=== PATIENT | female | born 1945 | race Caucasian/White ===

== ENCOUNTER 2024-01-31 23:38 | Inpatient (IN) | payer MEDICARE, OTHER, SELFPAY ==
[2024-01-31 20:31] VITALS: BP 109/64
[2024-01-31 20:55] VITALS: BP 130/63
[2024-01-31 21:00] VITALS: BP 115/64
--- NOTE | 2024-01-31 21:16 | ED.GENMED ---
History of Present Illness
General
Chief Complaint: Weakness
Source: patient and spouse
Time Seen by Provider: 01/31/24 20:57
History of Present Illness
History of Present Illness:
78yoF with a history of coronary artery disease s/p CABG, hypertension, and hyperlipidemia presenting with her for evaluation after a fall. Patient fell this afternoon and got her right arm stuck in between two railing. Her right arm was
stuck above her head for about 2.5 hours today. Patient has ecchymosis to her right arm and is having difficulty extending right wrist. states that she has been having frequent falls recently and has fallen 3 times within the last 2 weeks.
This is an acute change for her. Patient is otherwise asymptomatic and denies any fevers, vomiting, diarrhea, dysuria, chest pain, shortness of breath. She is currently taking aspirin.
Phy Exam
General Physical Exam
General Presentation: well appearing and no apparent distress
General age: appears stated age
General Skin: warm and dry
General Habitus: normal
General Mental: alert
Cardiovascular Exam
Cardiovascular Exam: regular rate/rhythm
Pulmonary Exam
Pulmonary Exam: lungs clear, no respiratory distress, no crackles and no wheezing
[place] Coma Scale
Eye Opening: Spontaneous
Verbal Response: Oriented
Motor Response: Obeys Commands
GCS Total Score: 15
Musculoskeletal Exam
Musculoskeletal Exam: other (R wrist drop noted on exam. No pain with passive ROM of wrist. 2+ radial pulse and sensation intact. )
Course
Orders/Labs/Results
Orders:
Orders
01/31/24 21:11
CR Humerus - Right Min 2 View* Urgent
Comment:
Reason For Exam: Injury
CR Wrist - Right Min 3 Views Urgent
Comment:
Reason For Exam: Injury
Forearm, Right 2 View [CR Forearm - Right 2 View] Urgent
Comment:
Reason For Exam: Injury
01/31/24 21:12
Electrocardiogram (*1) Urgent
Reason for Study: Fatigue / Weakness
EKG- Treatment ONCE
01/31/24 21:18
CR Knee - Left 4 Or More View* Urgent
Comment:
Reason For Exam: Injury
01/31/24 21:22
Complete Blood Count/With Diff Urgent
Comprehensive Metabolic Panel Urgent
Total CK [Creatine Phosphokinase] Urgent
Troponin I Urgent
01/31/24 22:03
0.9% Sodium Chloride 500 ml [Nss] 500 ml IV BOLUS
01/31/24 23:38
Admit/Transfer Patient As Directed
Co-Sign Provider:
Level of Care: Inpatient admission
Assign to:: Telemetry
Physician / Group: Tamica
Diagnosis: Fall
Reason for Telemetry: Other
Other Reason for Telemetry: Elevated trop
Date to Stop Telemetry: 02/02/24
Time to Stop Telemetry: 11:00
Reason for Hospitalization: fall, elevated trop, rhabdo
Expected length of stay greater than two midnights?: Yes
ELOS- Estimated Length of Stay in days: 3
I certify the patient meets the requirements for IP care: Yes
PRN Pain Medication Management As Directed
May give lesser potent ordered pain med per pt: Yes
preference::
Protocol:: Medication orders for pain may be administered in a
manner that supports deferring to patient preference
when the pt is:
- Requesting an ordered lesser potent pain medication.
Least to most potent pain medications are defined
as: acetaminophen < NSAID < tramadol < opioids
(morphine, oxycodone, hydromorphone).
- Requesting a lesser dose of the same medication IF
ORDERED.
- Requesting a less intrusive route of administration
if both routes are prescribed by the provider (PO <
IV).
01/31/24 23:39
Code Status As Directed
Resuscitation Status: Full Code
02/01/24 06:00
CPK [Creatine Phosphokinase] IN AM
02/02/24 11:00
DC Protocol for Telemetry ONCE
Abnormal Lab Results
01/31/24
21:22
RBC 3.83 L 10^6/uL
(4.20-5.40)
Hct 34.6 L %
(37.0-47.0)
MCH 31.3 H pg
(27.0-31.0)
Absolute Neuts (auto) 8.2 H 10^3/uL
(1.4-6.5)
Absolute Lymphs (auto) 0.5 L 10^3/uL
(1.2-3.4)
Absolute Monos (auto) 1.1 H 10^3/uL
(0.1-0.6)
Neutrophils % 82.5 H %
(42.2-75.2)
Lymphocytes % 5.4 L %
(20.5-51.1)
Monocytes % 11.4 H %
(1.7-9.3)
BUN 24 H mg/dl
(7-17)
Glucose 150 H mg/dl
(70-99)
AST 59 H U/L
(14-36)
Creatine Kinase 1472 H U/L
(30-135)
Troponin I 0.057 H* ng/ml
Total Protein 6.2 L g/dl
(6.3-8.2)
01/31/24 21:22
01/31/24 21:22
Vital Signs
Initial and Last Documented VS:
Initial Vital Signs
Temp Pulse Resp BP Pulse Ox
97.9 F 77 16 109/64 97
01/31/24 20:31 01/31/24 20:31 01/31/24 20:31 01/31/24 20:31 01/31/24 20:31
Last Documented Vital Signs
Temp Pulse Resp BP Pulse Ox
97.9 F 77 13 139/79 97
01/31/24 20:31 01/31/24 23:00 01/31/24 23:00 01/31/24 23:00 01/31/24 23:00
MDM/Problems Addressed
Differential Diagnosis Includes:
78yoF here after a fall this evening. Frequent falls over the past 2 weeks. Arrives with a R wrist drop on exam. Patient is afebrile and hemodynamically stable. She is well-appearing in no acute distress. Patient is unable to extend her right
wrist. Passive range of motion is normal without pain. Suspect radial nerve palsy. Differential diagnosis includes but is not limited to: Failure to thrive, ambulatory dysfunction, dehydration, rhabdomyolysis
Initial ED plan: Check cardiac labs, CK, EKG, and right upper extremity x-rays.
*EKG
Interpreted by ED Provider?: Yes
EKG Intrepretation Date: 02/01/24
Heart Rate: 73
Rate: normal
Rhythm: sinus
[place]: normal axis
Interval: normal interval
QRS Pattern: normal QRS
Ischemia: no ischemia
*Critical Care Note
Total Time (30-74mins, 75-104mins- exclusive of procedures): Not Applicable
Update Note
Update Note:
Labs reveal a CK of 1200. Troponin 0.057. No acute ST changes on EKG. Renal function is stable. X-rays are negative for fracture per my interpretation. Patient given IV fluid bolus and she was admitted for further management.
ED Attending Note
-
Portions of this chart may have been created with voice recognition software.� Occasional wrong word or��sound alike� substitutions may have occurred due to the inherent limitations of voice recognition software.
Discharge Plan
Departure
Patient Disposition: Admit
Date of Disposition: 01/31/24
Time of Disposition: 23:16
Presentation/result/management discussed w/ accepting MD/DO: Hospitalist
Discharge Problem:
Frequent falls, Elevated troponin, Rhabdomyolysis
Prescriptions:
No Action
multivitamin Tablet
1 tab PO DAILY
metoprolol succinate 50 mg Tablet Extended Release 24 Hr
50 mg PO DAILY
amlodipine 2.5 mg Tablet
2.5 mg PO DAILY
ascorbic acid (vitamin C) [Vitamin C] 500 mg Tablet
500 mg PO DAILY
aspirin 81 mg Tablet
81 mg PO DAILY
rosuvastatin 5 mg Tablet
5 mg PO DAILY
cholecalciferol (vitamin D3) [Vitamin D3] 50 mcg (2,000 unit) Tablet
50 mcg PO DAILY
Referrals:
NONE,* [Family Provider] -
Interventions
Interventions:
*Risk Screen - Suicide Last Done: 01/31/24 20:31
*General Assessment Last Done: 01/31/24 20:31
*Neglect/Abuse Screening Last Done: 01/31/24 20:31
*ED COVID-19 Vaccine History Last Done: 01/31/24 20:31
ED- Cardiac Assessment Last Done: 01/31/24 21:40
ED- Neurological Assessment Last Done: 01/31/24 21:40
ED- Pulmonary Assessment Last Done: 01/31/24 21:40
Discharge Date and Time
Print Language: MOHAWK
[2024-01-31 21:43] LABS: % Basophils 0.4 % (0-2); % Immature Granulocytes 0.3 % (0-0.5); % Lymphocytes 5.4 % (20.5-51.1); % Monocytes 11.4 % (1.7-9.3); % Neutrophils 82.5 % (42.2-75.2); Absolute Lymphocytes 0.5 10^3/uL (1.2-3.4); Absolute Monocytes 1.1 10^3/uL (0.1-0.6); Absolute Neutrophils 8.2 10^3/uL (1.4-6.5); Hematocrit 34.6 % (37.0-47.0); Mean Corp Hgb Conc. 34.7 g/dL (33.0-37.0); Mean Corpuscular Hgb 31.3 pg (27.0-31.0); Mean Corpuscular Volume 90.3 fL (81.0-99.0); Mean Platelet Volume 10.4 fL (7.4-10.4); Nucleated Red Blood Cells % 0 %; Platelet Count 183 10^3/uL (130-400); Red Blood Cell Count 3.83 10^6/uL (4.20-5.40); Red Cell Dist. Width 13.2 % (11.5-14.5)
[2024-01-31 22:00] VITALS: BP 99/62
[2024-01-31 22:00] LABS: ALT (SGPT) 21 U/L (0-35); AST (SGOT) 59 U/L (14-36); Albumin 3.9 g/dl (3.5-5.0); Alkaline Phosphatase 64 U/L (38-126); Blood Urea Nitrogen 24 mg/dl (7-17); Calcium 9.3 mg/dl (8.4-10.2); Carbon Dioxide 26 mmol/L (22-30); Chloride 103 mmol/L (98-107); Creatine Phosphokinase 1472 U/L (30-135); Glucose 150 mg/dl (70-99); Potassium 4.4 mmol/L (3.5-5.1); Sodium 140 mmol/L (135-145); Total Bilirubin 1.3 mg/dl (0.2-1.3); Total Protein 6.2 g/dl (6.3-8.2); eGFR > 60.00
[2024-01-31 22:10] LABS: Troponin I 0.057 ng/ml
[2024-01-31] MEDS: NSS 500 IV (22:52)
[2024-01-31 23:00] VITALS: BP 139/79
--- NOTE | 2024-01-31 23:44 | HPS.HSE ---
Family Physician
-
Family Physician: * NONE
Chief Complaint
-
Mechanical fall
History of Present Illness
A pleasant 78-year-old female with history of coronary artery disease status post CABG then year and a half ago in [facility], hypertension, presented to the hospital with a after goes home and found the she
was laying on the [place] and right arm hanging between the arm rail above her shoulder according to the patient she stated like this for 2 and half hour, and this is her third fall in a couple of week and sounds like all mechanical denying any
symptoms prior to the event like dizziness or syncope or palpitation or shortness of breath or fever or chill, she has chronic right knee pain and arthritis and according to the they think this is attributed to her falls, no urinary or GI
symptom no chest pain or shortness of breath or cough or congestion. Workup in the ER showed mild elevation of the CPK around 1500 troponins 0.057 and there is evidence of the right wrist drop.
She is awake, alert and oriented x 3 and all appropriate conversation, at the bedside help out to provide more information
Medical History
Past Medical History
Past Medical History: Reports Other
Additional Past Medical History:
Past medical history and records reviewed:
Coronary disease status post CABG
Hypertension
Dyslipidemia
Recurrent falls
Social history: Lives at home with , no smoking and rarely drinks some wine.
Family history: Reviewed and noncontributory
Past Surgical History: Reports Other
Social History
Unable to obtain full social history at this time due to: Other
Family History
Family History: Other
Allergies / Home Medications
Allergies reflects when Allergies were last updated in [facility].
Home Medications with original date entered in [facility]
Allergy/Medication List:
Allergies
Allergy/AdvReac Type Severity Reaction Status Date / Time
No Known Allergies Allergy Verified 01/31/24 20:47
Home Medications
amlodipine 2.5 mg tablet 2.5 mg PO DAILY 01/31/24
ascorbic acid (vitamin C) 500 mg tablet (Vitamin C) 500 mg PO DAILY 01/31/24
aspirin 81 mg tablet 81 mg PO DAILY 01/31/24
cholecalciferol (vitamin D3) 50 mcg (2,000 unit) tablet (Vitamin D3) 50 mcg PO DAILY 01/31/24
metoprolol succinate 50 mg tablet,extended release 24 hr 50 mg PO DAILY 01/31/24
multivitamin 1 tab PO DAILY 01/31/24
rosuvastatin 5 mg tablet 5 mg PO DAILY 01/31/24
Review of Systems
-
A 12 point ROS was completed and negative except as noted: Yes
Physical Exam
Vital Signs
Vital Signs
Temp Pulse Resp BP Pulse Ox
97.9 F 77 13 139/79 97
01/31/24 20:31 01/31/24 23:00 01/31/24 23:00 01/31/24 23:00 01/31/24 23:00
Physical exam:
General: Awake, alert and oriented x3, not in distress and holds appropriate conversation.
HEENT: No active discharge, ecchymosis or bruising, moist lips, tongue and mucous membrane.
Eyes: No discharge or red conjunctiva, no nystagmus, pupils are reactive and equal
Neck:Supple, no JVD no bruit no goiter.
Respiratory: Normal AP contour and diameter, normal chest wall movement, normal respiratory effort, no respiratory distress,
Lungs: Good air entry bilaterally, no wheezing or rhonchi, no rales or crackles
Heart: S1, S2 regular, normal rate, no added sound.
Gastrointestinal: Positive bowel sounds, soft, nontender, no guarding or rigidity or organomegaly
Musculoskeletal: Right wrist drop, scattered ecchymosis and bruising of the right extremity with no ulceration, no chest wall abnormality or tenderness. All joints and extremities have good range of motion, no muscle tenderness or any joint
swelling or tenderness.
Extremities: No pitting edema, good peripheral pulses, good range of motion
Skin: Warm and dry, no ulceration, normal color.
Neurological: Awake, alert and oriented x3, right wrist drop appreciated cranial nerve II-XII grossly intact, speech clear and comprehensive, good muscle tone, normal sensory and motor function, other than right wrist drop
Psychiatric: Normal mood, normal thought and judgment, normal affect,
Physical Exam
General: Other
Laboratory Results
-
01/31/24 21:22
01/31/24 21:22
Laboratory Results
Total Bilirubin 1.3 mg/dl (0.2-1.3) 01/31/24 21:22
AST 59 U/L (14-36) H 01/31/24 21:22
ALT 21 U/L (0-35) 01/31/24 21:22
Alkaline Phosphatase 64 U/L (38-126) 01/31/24 21:22
Troponin I 0.057 ng/ml H* 01/31/24 21:22
Multiple x-ray of the right extremity did not, they are pending official report, per my review there was no fracture or dislocation of the right knee, right elbow, right wrist, right humerus and right forearm, refer to radiologist report once
available.
Data Reviewed
-
Diagnostic Radiology: Image Personally Visualized and interpreted, Discussed with Patient and Discussed with Family
Lab Data: Labs Reviewed by me, Discussed with Patient and Discussed with Family
Impression/Plan
-
IMPRESSION:
78-year-old female with history of coronary artery disease, presented to the hospital after had a mechanical fall at home and found by the laying on the step and right arm hanging between the rail guarding of the step above her head and
patient admits stayed like that but when asked our she was not able to get up.
Right wrist drop: Likely secondary to obstruction of the right shoulder and leading to right radial nerve palsy
Placed the right wrist splint-brace which is removable
Patient advised about moving his finger
The injury and mechanism of injury explained to the patient and the and the purpose of keeping the right wrist straight to avoid joint contracture.
PT OT
Recurrent fall: According to the secondary to her right knee chronic pain and arthritis.
Fall precaution
PT OT and assess functional status.
Traumatic rhabdomyolysis, CPK around 1500
IV fluid
Recheck
Elevated troponin: Likely secondary to rhabdomyolysis and a fall, doubt of cardiac cause
Follow the trend
teletypesetter monitor
Continue aspirin, statin, beta-kashif
Coronary artery disease status post CABG, year and a half ago, stable
With mild elevated troponin likely secondary to rhabdomyolysis.
Continue aspirin, metoprolol and statin
Follow the troponin trend
Hypertension. Continue metoprolol succinate and monitor vital sign.
All discussed with the patient and the in detail and expressed understanding
CODE STATUS full code
DVT prophylaxis
[2024-02-01] VITALS (10 sets, daily range): BP systolic 102–147; BP diastolic 61–87; PULSE 68; O2SAT 95; BMI 22.1
--- NOTE | 2024-02-01 02:30 | PTCARENOTE ---
Pt arrived from ED, was asleep, woke patient up for admission. Pt with some speech difficulty at times- for example rather than saying 'wrought iron' she said 'pradip bennett'. When pt stating 'i have issues with my bowels' she is saying 'i have issues
with my mowels'. Pt is able to correct herself- is able to tell long stories at length with no issues noted. NIH completed- 0. House DESKTOP PUBLISHER notified- after initial difficulty pt has not been noted to have any speech issues.
[2024-02-01] MEDS: NSS 1000 IV ×2 (03:27→16:16)
[2024-02-01 07:42] LABS: Blood Urea Nitrogen 16 mg/dl (7-17); Carbon Dioxide 28 mmol/L (22-30); Chloride 106 mmol/L (98-107); Creatine Phosphokinase 1498 U/L (30-135); Estimated Creatinine Clearance 60 ml/min; Glucose 90 mg/dl (70-99); Sodium 142 mmol/L (135-145); eGFR > 60.00
[2024-02-01 07:57] LABS: Troponin I 0.045 ng/ml
[2024-02-01] MEDS: VITAMIN D3 (cholecalciferol) 50 MCG PO (08:07)
[2024-02-01] MEDS: NORVASC 2.5 MG PO (08:07)
[2024-02-01] MEDS: THERAGRAN 1 TABLET PO (08:07)
[2024-02-01] MEDS: TOPROL XL 50 MG PO (08:07)
[2024-02-01] MEDS: ASPIR LOW (ENTERIC COATED) 81 MG PO (08:07)
[2024-02-01] MEDS: CRESTOR 5 MG PO (08:07)
[2024-02-01 09:15] LABS: Urine Albumin Negative (Neg - Trace); Urine Bilirubin Negative (Negative); Urine Character Clear (Clear); Urine Color Yellow; Urine Glucose Negative (Negative); Urine Ketone Negative (Negative); Urine Leukocyte Negative (Negative); Urine Nitrite Negative (Negative); Urine Occult Blood Negative (Negative); Urine Specific Gravity 1.025 (<1.030); Urine Urobilinogen Negative (Neg - 1+)
--- NOTE | 2024-02-01 10:33 | W.PN.HOSP.TC ---
Today's Communication/Plan
-
Continue with IV fluids and trend CK
PT/OT eval, likely will need home PT
Monitor telemetry for events
Assessment / Plan
Assessment / Plan
#Right wrist drop
#Right radial nerve palsy
#Ambulatory dysfunction/mechanical fall
-Currently stabilized with right wrist splint/brace, frustrating to the patient as she is right-handed
-Denies any significant pain at this time, denies other neurological symptoms to the RUE or elsewhere
-States she has had multiple mechanical falls at home; denies syncope, or symptoms preceding falls
-No evidence of cardiogenic or neurogenic syncope, telemetry without any acute events
-Would benefit from physical therapy after discharge, PT/OT to evaluate today
#Elevated troponin
-Low suspicion for ACS or cardiogenic etiologies
-Likely nonischemic in the context of her fall and rhabdomyolysis
-No anginal equivalents, no ECG changes, downtrending troponin not consistent with ACS
#Traumatic rhabdomyolysis
-Secondary to fall, noticeable bruising on the right upper extremity on exam
-CK level near 1500 x 2, BMP without any signs of renal insufficiency
-Currently on IV fluids, will trend CK level and BMP while here
#Bilateral osteoarthritis of the knees
-Chronic, patient follows with orthopedics outside of the hospital
-States that she has limited flexibility to both knees, reduced ability to flex
-Encouraged her to schedule follow-up with them after discharge here
#CAD s/p CABG
-Performed 1.5 years ago; no associated cardiomyopathy, preserved EF
-Home GDMT includes beta-kashif, aspirin, statin therapy
-Downtrending troponin DC, no signs of active ischemia
-Resumed on home medications
#Hypertension
-No known history of hypertensive systemic disease
-Home medications include amlodipine, metoprolol succinate
-Blood pressure currently well-controlled
CODE STATUS: full code
DVT prophylaxis: Subcutaneous Lovenox
Diet: Regular low-fat
Anticipated Discharge: 24 - 48 hours
Subjective/Interval History
-
Date of Service: February 01, 2024
Patient was seen and examined at the bedside. No acute events reported since admission.
The patient states she feels well, is frustrated by not being able to use her right hand as she is a right-handed person. Otherwise states she wants to leave the hospital today. States that when she fell yesterday she believes she missed stepped
then fell forward with her right hand going through the railing of her banister.
She denies any chest pain, shortness of breath, fevers or chills, nausea, vomiting, diarrhea constipation, abnormal bleeding. No significant pain to the right wrist. Currently in brace, denies paresthesias or noticeable weakness that is not
related to wrist drop
Objective Data
-
Labs:
Laboratory Results
02/01/24
06:04
Sodium 142
Potassium 4.0
Chloride 106
Carbon Dioxide 28
BUN 16
Creatinine 0.7
Glucose 90
Calcium 9.0
Vital Signs:
Vital Signs
Temp Pulse Resp BP Pulse Ox
97.9 F 74 20 124/69 96
02/01/24 07:37 02/01/24 08:07 02/01/24 07:37 02/01/24 08:07 02/01/24 08:05
Review of Systems
-
History Source: Patient
All other systems: Reviewed and negative
Physical Exam
-
General: Well Nourished, No Apparent Distress and Comfortable
HEENT: Normocephalic, Atraumatic, Moist Mucous Membranes and Anicteric
Respiratory: Clear to Auscultation and Non Labored Respirations; Negative Wheezes, Rales or Rhonchi
Cardiac: Regular Rhythm and S1/S2; Negative Murmur, Rub, JVD or Gallop
GI: Soft, Nontender, Nondistended and Normal Bowel Sounds
Musculoskeletal: No Clubbing, No Cyanosis, No Edema and Other (No gross deformities, splint brace on right wrist)
Neuro: AO x 3, No Motor Deficits (Weakness to right wrist dorsiflexion), Nonfocal/Grossly Intact and Central Nerve's Intact
Data Reviewed
-
Labs: Labs Reviewed by me and Discussed with Patient
--- NOTE | 2024-02-01 11:18 | PTCARENOTE ---
Per Dr. Alexis, pt. may take right arm splint off for meals and has no weight baring precautions at this time. Also, Dr. Alexis made aware of pt. speech difficulty overnight. No new orders at this time. Pt. with no speech difficulty today.
[2024-02-01 13:12] LABS: Troponin I 0.019 ng/ml
--- NOTE | 2024-02-01 15:44 | W.PN.UPDATE ---
Update Note
Progress Note Update
Left knee x-ray came back positive for an acute nondisplaced patellar fracture. I have spoken with orthopedics about best management and recommendations for weightbearing as tolerated with knee immobilizer has been placed. Patient will work with
PT/OT with plan to follow-up in the outpatient setting with orthopedics for hinged knee brace to begin mobilization.
After working with physical therapy the patient has developed some left knee pain, increased swelling to the knee that was not seen this morning when she was lying in bed. I increased her Tylenol dose to 975 mg as needed. Will consider low-dose
oxycodone for breakthrough pain
I spoke with the patient's daughters at the bedside and updated them.
--- NOTE | 2024-02-01 16:15 | PTCARENOTE ---
Left knee immobilizer placed as ordered. Pt. tolerated and states that her knee/leg feels better with the brace. Call laurent within reach.
[2024-02-01] MEDS: TYLENOL 975 MG PO (16:17)
[2024-02-01] MEDS: LOVENOX 40 MG SC (16:18)
[2024-02-01 16:24] LABS: TSH 1.33 uIU/ml (0.47-4.68)
[2024-02-01] MEDS: SENOKOT-S 1 TABLET PO (19:14)
[2024-02-02] VITALS (8 sets, daily range): BP systolic 86–160; BP diastolic 55–73; PULSE 71; O2SAT 97
--- NOTE | 2024-02-02 02:47 | PTCARENOTE ---
Pt with frequent PVCs, 8 beat run v tach on telemetry house SENIOR ANALYSIS SPECIALIST aware mag level added to am labs.
[2024-02-02] MEDS: NSS 1000 IV ×2 (04:39→17:40)
[2024-02-02 06:28] LABS: % Basophils 1.2 % (0-2); % Immature Granulocytes 0.2 % (0-0.5); % Lymphocytes 15.5 % (20.5-51.1); % Monocytes 14.3 % (1.7-9.3); % Neutrophils 65.8 % (42.2-75.2); Absolute Basophils 0.1 10^3/uL (0-0.2); Absolute Eosinophils 0.2 10^3/uL (0-0.7); Absolute Lymphocytes 0.9 10^3/uL (1.2-3.4); Absolute Monocytes 0.9 10^3/uL (0.1-0.6); Hematocrit 33.7 % (37.0-47.0); Hemoglobin 11.7 g/dL (12.0-16.0); Mean Corp Hgb Conc. 34.7 g/dL (33.0-37.0); Mean Corpuscular Hgb 32.3 pg (27.0-31.0); Mean Corpuscular Volume 93.1 fL (81.0-99.0); Mean Platelet Volume 10.1 fL (7.4-10.4); Nucleated Red Blood Cells % 0 %; Platelet Count 171 10^3/uL (130-400); Red Blood Cell Count 3.62 10^6/uL (4.20-5.40); Red Cell Dist. Width 13.2 % (11.5-14.5); White Blood Cell Count 6.1 10^3/uL (4.8-10.8)
[2024-02-02 06:54] LABS: Blood Urea Nitrogen 18 mg/dl (7-17); Calcium 8.8 mg/dl (8.4-10.2); Carbon Dioxide 24 mmol/L (22-30); Chloride 109 mmol/L (98-107); Creatine Phosphokinase 968 U/L (30-135); Estimated Creatinine Clearance 70 ml/min; Glucose 85 mg/dl (70-99); Magnesium 1.8 mg/dl (1.6-2.3); Potassium 3.9 mmol/L (3.5-5.1); Sodium 141 mmol/L (135-145); eGFR > 60.00
--- NOTE | 2024-02-02 08:31 | W.PN.HOSP.TC ---
Today's Communication/Plan
-
await Dr. Aguilera eval
Assessment / Plan
Assessment / Plan
pt is a 78 year old female
mechanical fall with resultant left nondisplaced patella fracture and right wrist drop likely from radial nerve palsy (pt is right handed) with rhabdo--apprec PT/OT--consult Dr. Aguilera (pt may be candidate for acute rehab)--pt says she wants to
rehab at home--I do not think that is the best option (especially if her gait is shuffling and she has tremors)--will need outpt neuro eval--States she has had multiple mechanical falls at home; denies syncope, or symptoms preceding falls--trend CPK
Non myocardial troponin elevation--Low suspicion for ACS or cardiogenic etiologies--Likely nonischemic in the context of her fall and rhabdomyolysis--No anginal equivalents, no ECG changes, downtrending troponin not consistent with ACS
Traumatic rhabdomyolysis--Secondary to fall, noticeable bruising on the right upper extremity on exam--CK level near 1500 x 2, BMP without any signs of renal insufficiency--Currently on IV fluids, will trend CK level and BMP while here
Bilateral osteoarthritis of the knees--Chronic, patient follows with orthopedics outside of the hospital--States that she has limited flexibility to both knees, reduced ability to flex--Encouraged her to schedule follow-up with them after discharge
here
CAD s/p CABG--Performed 1.5 years ago; no associated cardiomyopathy, preserved EF--Home GDMT includes beta-kashif, aspirin, statin therapy--Downtrending troponin DC, no signs of active ischemia--Resumed on home medications
Essential Hypertension--No known history of hypertensive systemic disease--Home medications include amlodipine, metoprolol succinate--Blood pressure currently well-controlled
CODE STATUS: full code
DVT prophylaxis: Subcutaneous Lovenox
Anticipated Discharge: 24 - 48 hours
Subjective/Interval History
-
Date of Service: February 02, 2024
pt tells me she wants to rehab at home
Objective Data
-
Labs:
Laboratory Results
02/02/24
06:13
WBC 6.1
Hgb 11.7 L
Hct 33.7 L
Plt Count 171
Sodium 141
Potassium 3.9
Chloride 109 H
Carbon Dioxide 24
BUN 18 H
Creatinine 0.6
Glucose 85
Calcium 8.8
Vital Signs:
max temp for 24 hours
02/01/24
15:00
Temp 98.3 F
Vital Signs
Temp Pulse Resp BP Pulse Ox
97.9 F 63 18 160/69 95
02/02/24 08:21 02/02/24 08:21 02/02/24 08:21 02/02/24 08:21 02/02/24 08:21
I&O
02/01/24 02/02/24 02/03/24
06:59 06:59 06:59
Intake Total 1560 / 1560
Balance 1560 / 1560
Review of Systems
-
All other systems: Reviewed and negative
Physical Exam
-
General: Well Developed, Well Nourished and No Apparent Distress
HEENT: Normocephalic and Atraumatic
Respiratory: Clear to Auscultation; Negative Wheezes or Rhonchi
Cardiac: Regular Rhythm and S1/S2; Negative Murmur
GI: Soft, Nontender, Nondistended and Normal Bowel Sounds
Musculoskeletal: No Clubbing, No Cyanosis, No Edema and Other (left knee in immobilizer, right wrist in splint)
Neuro: Awake, Alert and Tremors
[2024-02-02] MEDS: NORVASC 2.5 MG PO (08:54)
[2024-02-02] MEDS: ASPIR LOW (ENTERIC COATED) 81 MG PO (08:54)
[2024-02-02] MEDS: CRESTOR 5 MG PO (08:55)
[2024-02-02] MEDS: THERAGRAN 1 TABLET PO (08:55)
[2024-02-02] MEDS: VITAMIN D3 (cholecalciferol) 50 MCG PO (08:55)
[2024-02-02] MEDS: TOPROL XL 50 MG PO (08:55)
--- NOTE | 2024-02-02 15:15 | CM ---
Addendum entered by Evonne Bueno RN 02/02/24 15:30:
OT hinamukesh said max A and recommenced acute rehab. MD to consult Dr Aguilera PM&R.
Original Note:
Alert awake oriented patient who lives with her Reji in a 1 story home with 0 steps to enter and bed/bathroom on first floor. She is independent in driving and all activates of daily living.She uses no adaptive devices.Offered VN she
said she will let CM know which VN .
Had [facility] in past . No SNF hx
Pharmacy [facility]
PCP Keegan Grijalva CHIEF EXECUTIVE OFFICER
PLAN Home with VN unsure which VN
[2024-02-02] MEDS: LOVENOX 40 MG SC (17:41)
--- NOTE | 2024-02-02 20:00 | PTCARENOTE ---
pt w/ family member present stated she is agreeable to go to [facility]. explained that she will need to tell physiatry, hospitalist and day nurse in morning. will monitor
[2024-02-03 03:08] VITALS: BP 139/73
[2024-02-03] MEDS: TYLENOL 975 MG PO (03:25)
[2024-02-03] MEDS: NSS 1000 IV (03:25)
[2024-02-03 06:51] VITALS: BMI 21.0
[2024-02-03 07:10] VITALS: BP 136/71
[2024-02-03 08:15] LABS: Hematocrit 31.4 % (37.0-47.0); Mean Corpuscular Hgb 31.5 pg (27.0-31.0); Mean Platelet Volume 10.3 fL (7.4-10.4); Platelet Count 207 10^3/uL (130-400); Red Blood Cell Count 3.49 10^6/uL (4.20-5.40); Red Cell Dist. Width 13.1 % (11.5-14.5); White Blood Cell Count 5.9 10^3/uL (4.8-10.8)
[2024-02-03] MEDS: ASPIR LOW (ENTERIC COATED) 81 MG PO (08:21)
[2024-02-03] MEDS: CRESTOR 5 MG PO (08:21)
[2024-02-03] MEDS: VITAMIN D3 (cholecalciferol) 50 MCG PO (08:21)
[2024-02-03] MEDS: TOPROL XL 50 MG PO (08:21)
[2024-02-03] MEDS: NORVASC 2.5 MG PO (08:22)
[2024-02-03] MEDS: THERAGRAN 1 TABLET PO (08:22)
--- NOTE | 2024-02-03 08:32 | PN.CDI ---
Addendum entered and electronically signed by Kassie Vuong MD 02/03/24 12:40:
Documentation complete
Original Note:
CDI
- -
CDI:
Physician Documentation Request
Admit Date: 01/31/24 23:38
Dear Doctor Yevgeniy,
Clinical Indicators:
Patient admitted with traumatic rhabdomyolysis.
02/01 PN, 'Non myocardial troponin elevation--Low suspicion for ACS or cardiogenic etiologies--Likely nonischemic in the context of her fall and rhabdomyolysis'
Troponin trend:
01/31/24 02/01/24 02/01/24
21:22 06:04 12:07
Troponin I 0.057 H* 0.045 H* 0.019 D
Based on the above, could you clarify in the progress notes, the appropriate diagnosis, if significant, that supports the above abnormalities and additional evaluation, monitoring and/or treatment rendered:
Non ischemic myocardial injury
Non myocardial troponin elevation only
Other, please specify
Use of terms such as suspected, likely, concern for, or probable (associated with a specific diagnosis that is being evaluated, monitored, or treated as if it exists) are acceptable and can be coded in the inpatient setting, when documented at the
time of discharge.
Thank you,
Mirian Abdi RN BSN
CDI Specialist
available via tiger text
Please use your independent medical judgment in providing your response.
[2024-02-03 09:05] LABS: Blood Urea Nitrogen 17 mg/dl (7-17); Calcium 8.8 mg/dl (8.4-10.2); Carbon Dioxide 23 mmol/L (22-30); Chloride 110 mmol/L (98-107); Creatine Phosphokinase 504 U/L (30-135); Estimated Creatinine Clearance 60 ml/min; Glucose 94 mg/dl (70-99); Potassium 3.7 mmol/L (3.5-5.1); Sodium 142 mmol/L (135-145); eGFR > 60.00
[2024-02-03 11:00] VITALS: BP 158/88
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
--- NOTE | 2024-02-03 11:59 | CM ---
Addendum entered by Olga Mcdowell 02/03/24 16:14:
Referral sent to [facility]. await response.
Original Note:
Patient now agreeable to [facility] referral. Dr. Yousif Why here to assess. CM will send referral to go to [facility]. CM will continue to follow for discharge planning needs.
Plan; Acute Rehab.
--- NOTE | 2024-02-03 12:00 | W.PN.HOSP.TC ---
Today's Communication/Plan
-
hopeful d/c to [facility] now that pt agreeable if qualifies
Assessment / Plan
Assessment / Plan
pt is a 78 year old female
mechanical fall with resultant left nondisplaced patella fracture and right wrist drop likely from radial nerve palsy (pt is right handed) with rhabdo--apprec PT/OT--consult Dr. Aguilera --pt says she wants to rehab at home--I do not think that is
the best option (especially if her gait is shuffling and she has tremors) concern for undiagnosed Parkinson's--will need outpt neuro eval--States she has had multiple mechanical falls at home; denies syncope, or symptoms preceding falls--trend CPK
Non myocardial troponin elevation--Low suspicion for ACS or cardiogenic etiologies--Likely nonischemic in the context of her fall and rhabdomyolysis--No anginal equivalents, no ECG changes, downtrending troponin not consistent with ACS
Traumatic rhabdomyolysis--Secondary to fall, noticeable bruising on the right upper extremity on exam--CK level near 1500, 900, 500--so improving-- BMP without any signs of renal insufficiency--stop IV fluids, will trend CK level and BMP while here
Bilateral osteoarthritis of the knees--Chronic, patient follows with orthopedics outside of the hospital--States that she has limited flexibility to both knees, reduced ability to flex--Encouraged her to schedule follow-up with them after discharge
here
CAD s/p CABG--Performed 1.5 years ago; no associated cardiomyopathy, preserved EF--Home GDMT includes beta-kashif, aspirin, statin therapy--Downtrending troponin DC, no signs of active ischemia--Resumed on home medications
Essential Hypertension--No known history of hypertensive systemic disease--Home medications include amlodipine, metoprolol succinate--Blood pressure currently well-controlled
CODE STATUS: full code
DVT prophylaxis: Subcutaneous Lovenox
Anticipated Discharge: Today
Subjective/Interval History
-
Date of Service: February 03, 2024
pt now agreeable to [facility]
Objective Data
-
Labs:
Laboratory Results
02/03/24
07:16
WBC 5.9
Hgb 11.0 L
Hct 31.4 L
Plt Count 207 D
Sodium 142
Potassium 3.7
Chloride 110 H
Carbon Dioxide 23
BUN 17
Creatinine 0.7
Glucose 94
Calcium 8.8
Vital Signs:
max temp for 24 hours
02/03/24
03:08
Temp 100.7 F H
Vital Signs
Temp Pulse Resp BP Pulse Ox
98.2 F 71 16 158/88 95
02/03/24 11:00 02/03/24 11:00 02/03/24 11:00 02/03/24 11:00 02/03/24 11:00
I&O
02/02/24 02/03/24 02/04/24
06:59 06:59 06:59
Intake Total 1560 / 1560 1080 / 1080
Balance 1560 / 1560 1080 / 1080
Review of Systems
-
All other systems: Reviewed and negative
Physical Exam
-
General: Well Developed, Well Nourished and No Apparent Distress
HEENT: Normocephalic and Atraumatic
Respiratory: Clear to Auscultation; Negative Wheezes or Rhonchi
Cardiac: Regular Rhythm and S1/S2; Negative Murmur
GI: Soft, Nontender, Nondistended and Normal Bowel Sounds
Musculoskeletal: No Clubbing, No Cyanosis, No Edema and Other (left knee immobilizer in place--right wrist splinted)
Neuro: Awake
[2024-02-03 15:10] VITALS: BP 114/60
[2024-02-03 15:22] VITALS: BP 114/60
[2024-02-03] MEDS: SENOKOT 17.2 MG PO (15:28)
[2024-02-03 16:22] LABS: Iron 75 ug/dl (37-170); Percent Saturation 33 % (20-50); Total Iron Binding Capacity 222 ug/dl (265-497)
[2024-02-03 16:43] LABS: Vitamin D, 25-OH*** 35.9 ng/mL (30-80)
[2024-02-03 17:01] LABS: Ferritin 95.7 ng/ml (11.1-264.0)
[2024-02-03] MEDS: LOVENOX 40 MG SC (17:18)
[2024-02-03 17:32] LABS: Folate > 20.0 ng/ml (2.76-20); Vitamin B12 351 pg/ml (239-931)
[2024-02-03] MEDS: COLACE 100 MG PO (19:22)
[2024-02-03 23:51] VITALS: BP 158/74
[2024-02-04 06:00] VITALS: BMI 22.1
[2024-02-04 07:10] VITALS: BP 138/83
[2024-02-04 08:34] VITALS: BP 107/69; BP 138/83; BP 141/86; PULSE 63; PULSE 75; PULSE 81
[2024-02-04] MEDS: COLACE PO (08:35)
[2024-02-04] MEDS: ASPIR LOW (ENTERIC COATED) 81 MG PO (08:35)
[2024-02-04] MEDS: NORVASC 2.5 MG PO (08:35)
[2024-02-04] MEDS: CRESTOR 5 MG PO (08:35)
[2024-02-04] MEDS: THERAGRAN 1 TABLET PO (08:36)
[2024-02-04] MEDS: VITAMIN D3 (cholecalciferol) 50 MCG PO (08:36)
[2024-02-04] MEDS: TOPROL XL 50 MG PO (08:36)
--- NOTE | 2024-02-04 10:04 | CM ---
Addendum entered by Olga Mcdowell 02/04/24 11:28:
Patient requested CM email form (IMM) to him at [email or web address]. Patient happy with plan for transition to [facility] today. CM will continue to follow for discharge planning needs.
Plan; transition to [facility] today.
Original Note:
Patient accepted for transfer to [facility], pending physician assessment this am. CM will continue to follow for discharge planning needs.
Plan; Acute care rehab.
--- NOTE | 2024-02-04 11:32 | W.PN.HOSP.TC ---
Today's Communication/Plan
-
d/c to [facility]
Assessment / Plan
Assessment / Plan
pt is a 78 year old female
OK for [facility]
mechanical fall with resultant left nondisplaced patella fracture and right wrist drop likely from radial nerve palsy (pt is right handed) with rhabdo--apprec PT/OT--consult Dr. Aguilera --pt says she wants to rehab at home--I do not think that is
the best option (especially if her gait is shuffling and she has tremors) concern for undiagnosed Parkinson's--will need outpt neuro eval--States she has had multiple mechanical falls at home; denies syncope, or symptoms preceding falls--trend CPK
Non myocardial troponin elevation--Low suspicion for ACS or cardiogenic etiologies--Likely nonischemic in the context of her fall and rhabdomyolysis--No anginal equivalents, no ECG changes, downtrending troponin not consistent with ACS
Traumatic rhabdomyolysis--Secondary to fall, noticeable bruising on the right upper extremity on exam--CK level near 1500, 900, 500--so improving-- BMP without any signs of renal insufficiency--stop IV fluids, will trend CK level and BMP while here
Bilateral osteoarthritis of the knees--Chronic, patient follows with orthopedics outside of the hospital--States that she has limited flexibility to both knees, reduced ability to flex--Encouraged her to schedule follow-up with them after discharge
here
CAD s/p CABG--Performed 1.5 years ago; no associated cardiomyopathy, preserved EF--Home GDMT includes beta-kashif, aspirin, statin therapy--Downtrending troponin DC, no signs of active ischemia--Resumed on home medications
Essential Hypertension--No known history of hypertensive systemic disease--Home medications include amlodipine, metoprolol succinate--Blood pressure currently well-controlled
CODE STATUS: full code
DVT prophylaxis: Subcutaneous Lovenox
Anticipated Discharge: Today
Subjective/Interval History
-
Date of Service: February 04, [address] to the bathroom--accepted at [facility]
Objective Data
-
Vital Signs:
max temp for 24 hours
02/04/24
04:03
Temp 99.3 F
Vital Signs
Temp Pulse Resp BP Pulse Ox
98 F 69 20 138/83 95
02/04/24 07:10 02/04/24 08:35 02/04/24 07:10 02/04/24 08:35 02/04/24 07:10
I&O
02/03/24 02/04/24 02/05/24
06:59 06:59 06:59
Intake Total 1080 / 1080 480 / 480
Balance 1080 / 1080 480 / 480
Review of Systems
-
All other systems: Reviewed and negative
Physical Exam
-
General: Well Developed, Well Nourished and No Apparent Distress
HEENT: Normocephalic and Atraumatic
Cardiac: Regular Rhythm and S1/S2; Negative Murmur
GI: Soft, Nontender, Nondistended and Normal Bowel Sounds
Musculoskeletal: No Clubbing, No Cyanosis and No Edema
Neuro: Awake and Alert
[2024-02-04] MEDS: SENOKOT PO (11:42)
[2024-02-04 14:35] VITALS: BP 100/52
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
== END 2024-02-04 15:45 | DRG 74 ==
LOC: 4 EAST ACU 23:38
PROVIDERS: Internal Medicine; Physician Assistant; ADMITTING PHYSICIAN Internal Medicine; ATTENDING PHYSICIAN Internal Medicine; CONSULT PHYSICIAN Physical Medicine & Rehabilitation; EMERGENCY PHYSICIAN Student in an Organized Health Care Education/Training Program
DX: G56.31 Lesion of radial nerve, right upper limb (principal); S82.002A Unspecified fracture of left patella, initial encounter for closed fracture; I5A Non-ischemic myocardial injury (non-traumatic); M21.331 Wrist drop, right wrist; T79.6XXA Traumatic ischemia of muscle, initial encounter; Z79.82 Long term (current) use of aspirin; I25.10 Atherosclerotic heart disease of native coronary artery without angina pectoris; I10 Essential (primary) hypertension; M17.0 Bilateral primary osteoarthritis of knee; W10.8XXA Fall (on) (from) other stairs and steps, initial encounter; Y92.019 Unspecified place in single-family (private) house as the place of occurrence of the external cause
CPT/HCPCS: 70450; 73060; 73090; 73110; 73564; 80048; 80053; 81003; 82306; 82550; 82607; 82728; 82746; 83540; 83550; 83735; 84443; 84484; 85025; 85027; 93005; 96360; 97116; 97163; 97167; 97530; 97535; 99285